=== PATIENT | female | born 1990 | race Two or more races ===

== ENCOUNTER 2017-05-24 10:38 | Inpatient (IN) | payer OTHER ==
[~2017-05-24] VITALS: Ht 162.6 cm; Wt 100.5 kg
[2017-05-24 16:47] VITALS: BP 119/74
[2017-05-24] MEDS ORDERED: LIDOCAINE GEL 2%, 5ML ONE (18:05)
[2017-05-24] MEDS ORDERED: MIDAZOLAM 1 MG/ML, 2ML ONE (18:06)
[2017-05-24] MEDS ORDERED: FENTANYL PF 250 MCG/5ML ONE (18:06)
[2017-05-24] MEDS ORDERED: GABAPENTIN 300 MG CAPSULE ONE ×2 (18:19→18:32)
[2017-05-24] MEDS ORDERED: ACETAMINOPHEN 500 MG TABLET ONE ×2 (18:19→18:32)
[2017-05-24] MEDS ORDERED: OxyconTIN ER 20 MG TAB.ER ONE (18:19)
[2017-05-24] MEDS ORDERED: ONDANSETRON ODT 8 MG ONE (18:19)
[2017-05-24] MEDS ORDERED: ALBUMIN HUMAN 5%, 25G/500ML ONE (18:32)
[2017-05-24] MEDS ORDERED: HEPARIN 1,000 UNITS/ML, 10ML ONE (19:22)
[2017-05-24] MEDS ORDERED: NEOSTIGMINE 1 MG/ML, 10ML ONE (19:55)
[2017-05-24] MEDS ORDERED: DEXAMETHASONE 4 MG/ML, 1ML ONE (19:55)
[2017-05-24] MEDS ORDERED: ONDANSETRON 2MG/ML, 2ML ONE (19:55)
[2017-05-24] MEDS ORDERED: CEFAZOLIN 1,000 MG ONE (19:55)
[2017-05-24] MEDS ORDERED: PROPOFOL 10 MG/ML, 20ML ONE (19:55)
[2017-05-24] MEDS ORDERED: SUCCINYLCHOLINE 20 MG/ML, 10ML ONE (19:55)
[2017-05-24] MEDS ORDERED: ROCURONIUM 10 MG/ML,10ML ONE (19:55)
[2017-05-24] MEDS ORDERED: GLYCOPYRROLATE 0.2MG/1ML, 5ML ONE (19:55)
[2017-05-24] MEDS ORDERED: LIDOCAINE-MPF 2% ,5ML ONE ×2 (20:14)
[2017-05-24] MEDS ORDERED: ALBUTEROL/IPRATROPIUM 2.5MG/0.5MG, 3 ML NPPB PRN (21:00)
[2017-05-24] MEDS ORDERED: PROMETHAZINE 25 MG/ML, 1ML IV PRN (21:00)
[2017-05-24] MEDS ORDERED: ALBUTEROL SULFATE 2.5 MG/3 ML NPPB PRN (21:00)
[2017-05-24] MEDS ORDERED: morphine SULFATE 10 MG/ML, 1ML IV PRN (21:00)
[2017-05-24] MEDS ORDERED: DIAZEPAM 5 MG/ML, 2ML IVPush PRN (21:00)
[2017-05-24] MEDS ORDERED: hydrALAzine 20 MG/ML, 1ML IV PRN (21:00)
[2017-05-24] MEDS ORDERED: MIDAZOLAM 1 MG/ML, 2ML IV PRN (21:00)
[2017-05-24] MEDS ORDERED: MEPERIDINE/PF 25MG/0.5ML IVPush PRN (21:00)
[2017-05-24] MEDS ORDERED: LORazepam 2 MG/ML, 1ML IVPush PRN (21:00)
[2017-05-24] MEDS ORDERED: LABETALOL 5MG/ML, 20ML IV PRN (21:00)
[2017-05-24] MEDS ORDERED: OXYcodone 5 MG/5 ML ORAL.SOL UDC PO PRN (21:00)
[2017-05-24] MEDS ORDERED: ONDANSETRON 2MG/ML, 2ML IVPush PRN ×2 (21:00→22:00)
[2017-05-24] MEDS ORDERED: METOCLOPRAMIDE 5 MG/ML, 2ML ONE (21:07)
[2017-05-24] MEDS ORDERED: MEPERIDINE/PF 50 MG/ML ONE (21:18)
[2017-05-24] MEDS: FENTANYL PF 100 MCG/2ML IV PRN ×2 (21:45→22:00)
[2017-05-24] MEDS ORDERED: FENTANYL PF 100 MCG/2ML ONE (21:49)
[2017-05-24] MEDS ORDERED: ONDANSETRON 4 MG TABLET PO PRN (22:00)
[2017-05-24] MEDS ORDERED: MEPERIDINE/PF 25MG/0.5ML ONE (22:27)
[2017-05-24 22:48] LABS: MEAN CORPUSCULAR HEMOGLOBIN 18.3 pg (27.0-34.8); MEAN CORPUSCULAR HGB CONC 30.3 g/dL (32.4-35.8); MEAN CORPUSCULAR VOLUME 60.5 fL (80-100); MEAN PLATELET VOLUME 7.9 fL (7.4-10.4); PLATELET COUNT 452 x10^3/uL (130-400); RED BLOOD COUNT 3.91 x10^6/uL (3.82-5.3); RED CELL DISTRIBUTION WIDTH 23.4 % (9.6-15.2)
[2017-05-24 23:18] LABS: MD MORPH REVIEW ONLY
[2017-05-24 23:19] LABS: ANISOCYTOSIS 1+; BASOPHILS # (AUTO) 0.01 x10^3/uL (0-0.1); BASOPHILS % (AUTO) 0 % (0-1); EOSINOPHILS % (AUTO) 0 % (1-7); HYPOCHROMIA 2+; LYMPHOCYTES # (AUTO) 2.11 x10^3/uL (1-3.4); LYMPHOCYTES % (AUTO) 12 % (22-44); MICROCYTOSIS 1+; MONOCYTES # (AUTO) 0.51 x10^3/uL (0.2-0.8); MONOCYTES % (AUTO) 3 % (2-9); NEUTROPHILS # (AUTO) 14.85 x10^3/uL (1.8-6.8); NEUTROPHILS % (AUTO) 85 % (42-75)
[2017-05-24 23:20] LABS: OVALOCYTES 1+; POLYCHROMASIA 1+; SCHISTOCYTES 1+; TEAR DROPS 1+
[2017-05-24 23:23] LABS: <PLATELET ESTIMATE> ADEQUATE; <PLT MORPHOLOGY> NORMAL PLT MORPH
[2017-05-25] MEDS: KETOROLAC 30 MG/1 ML IV SCH ×3 (00:05→17:43)
[2017-05-25] MEDS: POTASSIUM CHLORIDE 20 MEQ in D5%-0.45% NACL 1,000 ML IV SCH ×3 (00:05→17:27)
[2017-05-25 01:57] VITALS: BP 94/43
[2017-05-25 05:08] LABS: ALBUMIN 3.1 g/dL (3.4-5.0); ANION GAP 6 mmol/L (5-15); CALCIUM 7.5 mg/dL (8.5-10.1); CHLORIDE 107 mmol/L (98-107)
[2017-05-25 05:10] LABS: CREATININE 0.57 mg/dL (0.55-1.02)
[2017-05-25 05:14] LABS: MEAN CORPUSCULAR HEMOGLOBIN 18.6 pg (27.0-34.8); MEAN CORPUSCULAR VOLUME 60.1 fL (80-100); MEAN PLATELET VOLUME 8.1 fL (7.4-10.4); PLATELET COUNT 353 x10^3/uL (130-400); RED BLOOD COUNT 3.47 x10^6/uL (3.82-5.3)
[2017-05-25 06:00] LABS: BASOPHILS % (AUTO) 0 % (0-1); EOSINOPHILS % (AUTO) 0 % (1-7); LYMPHOCYTES # (AUTO) 0.93 x10^3/uL (1-3.4); LYMPHOCYTES % (AUTO) 8 % (22-44); MD SCAN; MONOCYTES # (AUTO) 0.85 x10^3/uL (0.2-0.8); MONOCYTES % (AUTO) 7 % (2-9); NEUTROPHILS # (AUTO) 10.26 x10^3/uL (1.8-6.8); NEUTROPHILS % (AUTO) 85 % (42-75)
[2017-05-25 07:46] VITALS: BP 92/53
[2017-05-25] MEDS ORDERED: IRON DEXTRAN COMPLEX 25 MG in SODIUM CHLORIDE 0.9% 50 ML IV ONE (09:00)
[2017-05-25] MEDS ORDERED: IRON DEXTRAN IV PER PHARMACY IV PRN (09:00)
[2017-05-25] MEDS ORDERED: IRON DEXTRAN COMPLEX 1,600 MG in SODIUM CHLORIDE 0.9% 250 ML IV ONE (11:00)
[2017-05-25] MEDS ORDERED: EPINEPHRINE 1 MG/ML, 1ML ONE (12:24)
[2017-05-25] MEDS: FERROUS SULFATE 325 MG TABLET PO SCH ×2 (12:25→17:43)
[2017-05-25 14:11] VITALS: BP 115/58
[2017-05-25 19:18] VITALS: BP 101/58
[2017-05-26] VITALS (9 sets, daily range): BP systolic 98–109; BP diastolic 51–64
[2017-05-26] MEDS: KETOROLAC 30 MG/1 ML IV SCH (02:04)
[2017-05-26] MEDS: POTASSIUM CHLORIDE 20 MEQ in D5%-0.45% NACL 1,000 ML IV SCH ×2 (02:04→08:25)
[2017-05-26 04:44] LABS: MEAN CORPUSCULAR HEMOGLOBIN 18.5 pg (27.0-34.8); MEAN CORPUSCULAR HGB CONC 30.8 g/dL (32.4-35.8); MEAN CORPUSCULAR VOLUME 60.1 fL (80-100); MEAN PLATELET VOLUME 7.9 fL (7.4-10.4); PLATELET COUNT 347 x10^3/uL (130-400); RED BLOOD COUNT 3.27 x10^6/uL (3.82-5.3); RED CELL DISTRIBUTION WIDTH 23.2 % (9.6-15.2)
[2017-05-26 05:16] LABS: BASOPHILS # (AUTO) 0.04 x10^3/uL (0-0.1); BASOPHILS % (AUTO) 1 % (0-1); EOSINOPHILS # (AUTO) 0.01 x10^3/uL (0-0.4); EOSINOPHILS % (AUTO) 0 % (1-7); LYMPHOCYTES # (AUTO) 2.07 x10^3/uL (1-3.4); LYMPHOCYTES % (AUTO) 25 % (22-44); MD SCAN; MONOCYTES # (AUTO) 0.63 x10^3/uL (0.2-0.8); MONOCYTES % (AUTO) 8 % (2-9); NEUTROPHILS # (AUTO) 5.63 x10^3/uL (1.8-6.8); NEUTROPHILS % (AUTO) 67 % (42-75)
[2017-05-26] MEDS ORDERED: OXYcodone/APAP 7.5/325MG TABLET ONE (08:41)
[2017-05-26] MEDS: FERROUS SULFATE 325 MG TABLET PO SCH ×3 (08:48→16:49)
[2017-05-26] MEDS: OXYcodone/APAP 7.5/325MG TABLET PO PRN (08:48)
[2017-05-26] MEDS: KETOROLAC 30 MG/1 ML IV PRN ×2 (10:53→20:04)
[2017-05-26] MEDS ORDERED: MORPHINE SULFATE 4 MG/ML, 1ML IVPush ONE (12:00)
[2017-05-26] MEDS ORDERED: ACETAMINOPHEN 325 MG TABLET PO ONE (15:30)
[2017-05-26] MEDS ORDERED: DIPHENHYDRAMINE 25 MG CAPSULE PO ONE (15:30)
[2017-05-26] MEDS ORDERED: POTASSIUM CHLORIDE 20 MEQ in D5%-0.45% NACL 1,000 ML IV SCH (21:32)
[2017-05-27 00:40] VITALS: BP 105/57
[2017-05-27 05:02] LABS: MEAN CORPUSCULAR HEMOGLOBIN 20.8 pg (27.0-34.8); MEAN CORPUSCULAR HGB CONC 31.4 g/dL (32.4-35.8); MEAN CORPUSCULAR VOLUME 66.3 fL (80-100); MEAN PLATELET VOLUME 7.9 fL (7.4-10.4); PLATELET COUNT 337 x10^3/uL (130-400); RED BLOOD COUNT 3.85 x10^6/uL (3.82-5.3); RED CELL DISTRIBUTION WIDTH 29.6 % (9.6-15.2)
[2017-05-27] MEDS: KETOROLAC 30 MG/1 ML IV PRN ×3 (05:23→19:25)
[2017-05-27 05:50] LABS: MD YES
[2017-05-27 05:52] LABS: ANISOCYTOSIS 2+; BASOS#(MANUAL) 0.11 x10^3/uL (0-0.1); BASOS% (MANUAL) 1 % (0-1); EOS#(MANUAL) 0.22 x10^3/uL (0.0-0.4); EOS% (MANUAL) 2 % (1-7); LYMPH#(MANUAL) 2.24 x10^3/uL (1-3.4); LYMPHS% (MANUAL) 20 % (22-44); MONOS#(MANUAL) 0.45 x10^3/uL (0.3-2.7); MONOS% (MANUAL) 4 % (2-9); SEG#(MANUAL) 8.18 x10^3/uL (1.8-6.8); SEGS% (MANUAL) 73 % (42-75)
[2017-05-27 05:53] LABS: HYPOCHROMIA 2+; MICROCYTOSIS 2+; POLYCHROMASIA 1+
[2017-05-27 05:54] LABS: OVALOCYTES 1+; TEAR DROPS 1+
[2017-05-27 05:55] LABS: <PLATELET ESTIMATE> ADEQUATE
[2017-05-27 06:05] LABS: LARGE PLATELETS 1+
[2017-05-27 07:00] VITALS: BP 101/60
[2017-05-27] MEDS: FERROUS SULFATE 325 MG TABLET PO SCH ×3 (08:38→18:32)
[2017-05-27] MEDS: OXYcodone/APAP 7.5/325MG TABLET PO PRN ×3 (08:38→22:38)
[2017-05-27] MEDS: POTASSIUM CHLORIDE 20 MEQ in D5%-0.45% NACL 1,000 ML IV SCH (12:50)
[2017-05-27 13:10] VITALS: BP 115/75
[2017-05-27 18:39] VITALS: BP 110/74
[2017-05-28 01:03] VITALS: BP 107/70
[2017-05-28] MEDS: KETOROLAC 30 MG/1 ML IV PRN ×4 (01:22→20:23)
[2017-05-28] MEDS: POTASSIUM CHLORIDE 20 MEQ in D5%-0.45% NACL 1,000 ML IV SCH ×2 (02:15→15:35)
[2017-05-28] MEDS: OXYcodone/APAP 7.5/325MG TABLET PO PRN ×4 (04:25→22:31)
[2017-05-28] MEDS: FERROUS SULFATE 325 MG TABLET PO SCH ×3 (08:00→16:48)
[2017-05-28 09:50] VITALS: BP 97/58
[2017-05-28 16:00] VITALS: BP 108/71
[2017-05-28 18:36] VITALS: BP 123/78
[2017-05-29 01:42] VITALS: BP 111/72
[2017-05-29] MEDS: KETOROLAC 30 MG/1 ML IV PRN ×2 (02:19→08:42)
[2017-05-29] MEDS: OXYcodone/APAP 7.5/325MG TABLET PO PRN ×2 (04:47→11:09)
[2017-05-29] MEDS: POTASSIUM CHLORIDE 20 MEQ in D5%-0.45% NACL 1,000 ML IV SCH (04:50)
[2017-05-29 06:45] VITALS: BP 111/74
[2017-05-29] MEDS: FERROUS SULFATE 325 MG TABLET PO SCH ×2 (08:42→11:09)
[2017-05-29] MEDS ORDERED: ONDA4TAB12 PO (10:12)
[2017-05-29] MEDS ORDERED: FERR-51 PO (10:12)
[2017-05-29] MEDS ORDERED: OXYC1TAB8 PO (10:12)
== END 2017-05-29 13:40 | disposition home or self-care (01) | DRG 742 ==
LOC: 3NW 16:10
PROVIDERS: ADMIT Specialist; ATTEND Specialist
PROC: 0DTU0ZZ Resection of Omentum, Open Approach (ICD-10-PCS; 2017-05-24)
PROC: 0UT70ZZ Resection of Bilateral Fallopian Tubes, Open Approach (ICD-10-PCS; 2017-05-24)
PROC: 0DTJ0ZZ Resection of Appendix, Open Approach (ICD-10-PCS; 2017-05-24)
PROC: 07BD0ZZ Excision of Aortic Lymphatic, Open Approach (ICD-10-PCS; 2017-05-24)
PROC: 07BC0ZZ Excision of Pelvis Lymphatic, Open Approach (ICD-10-PCS; 2017-05-24)
PROC: 0UT20ZZ Resection of Bilateral Ovaries, Open Approach (ICD-10-PCS; principal; 2017-05-24 17:30)
PROC: 30233N1 Transfusion of Nonautologous Red Blood Cells into Peripheral Vein, Percutaneous Approach (ICD-10-PCS; 2017-05-26)
DX: N83.202 Unspecified ovarian cyst, left side (principal); R18.8 Other ascites; D64.9 Anemia, unspecified; N83.201 Unspecified ovarian cyst, right side
CPT/HCPCS: 36415; 74018; 80048; 82040; 83735; 85025; 86850; 86900; 86923; 88112; 88302; 88304; 88305; 88307; 88331; J0690; J1100; J1644; J1750; J1885; J2175; J2250; J2270; J2405; J2704; J2710; J3010; J3480; J3490; P9045; C1765; J0330; J2765; J7050; P9016; Q0163